=== PATIENT | male | born 1995 | race Caucasian/White ===

== ENCOUNTER 2021-03-23 21:33 | Emergency (ER) | payer OTHER, SELFPAY ==
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
[2021-03-23 21:45] VITALS: BP 143/85; PULSE 80; RESP 17; TEMP 36.8; O2SAT 96; BMI 32.8
[2021-03-23] MEDS: Ondansetron ODT 4 MG TAB.RAPDIS TRANSLINGU (21:52)
[2021-03-23] MEDS: Acetaminophen 325 MG TABLET 650 MG PO (21:52)
[2021-03-23] MEDS: Ibuprofen 600 MG TABLET PO (23:53)
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
== END 2021-03-24 01:07 | disposition home or self-care (01) ==
PROVIDERS: Emergency Provider Internal Medicine; PCP Internal Medicine
DX: S09.90XA Unspecified injury of head, initial encounter (principal); G44.309 Post-traumatic headache, unspecified, not intractable; R07.89 Other chest pain; V57.5XXA Driver of pick-up truck or van injured in collision with fixed or stationary object in traffic accident, initial encounter; Y93.9 Activity, unspecified; Y92.410 Unspecified street and highway as the place of occurrence of the external cause; Y99.9 Unspecified external cause status; Z79.899 Other long term (current) drug therapy
CPT/HCPCS: 70450; 71101; 99284